=== PATIENT | female | born 1980 | race Caucasian/White ===

== ENCOUNTER 2023-03-13 11:22 | Emergency (ER) | payer OTHER, SELFPAY ==
[2023-03-13] VITALS (51 sets, daily range): BP systolic 60–91; BP diastolic 31–51; PULSE 60–74; RESP 16–26; TEMP 36.5; O2SAT 92–100; BMI 26.3
--- NOTE | 2023-03-13 11:32 | DI.RAD.S_ITS ---
PROCEDURE: XR CHEST 1V INDICATIONS: suspected sepsis TECHNIQUE: One view of the chest was acquired. COMPARISON: None. FINDINGS: Surgical changes and devices: None. Lungs and pleura: Lungs are clear. No pleural effusions or pneumothorax. Mediastinum: Mediastinal contours appear normal. Heart size is normal. Bones and chest wall: No suspicious bony lesions. Overlying soft tissues appear unremarkable. IMPRESSION: No acute cardiopulmonary disease. Dictated by: Sasha Lynne M.D. on 03/13/2023 at 12:29 Approved by: Sasha Lynne M.D. on 03/13/2023 at 12:30
[2023-03-13] MEDS: SODIUM CHLORIDE 0.9% 1,000 ML 1000 ML IV ×2 (11:50→12:20)
[2023-03-13 12:00] LABS: Add Manual Diff / Slide Review NO; Basophils Absolute Auto 0 /uL (0-100); Basophils Percent Auto 0.1 % (0-2); Eosinophils Absolute Auto 100 /uL (0-450); Eosinophils Percent Auto 0.5 % (2-4); Hematocrit 37.7 % (36-46); Hemoglobin 13.1 g/dL (12.0-16.0); Lymphocytes Absolute Auto 1800 /uL (1100-4500); Lymphocytes Percent Auto 11.6 % (25-40); Mean Corpuscular HGB Conc 34.6 % (30-36); Mean Corpuscular Hemoglobin 38.1 PG (26-34); Mean Corpuscular Volume 110.2 fL (80-100); Monocytes Absolute Auto 1000 /uL (0-900); Monocytes Percent Auto 6.5 % (3-14); Neutrophils Absolute Auto 12400 /uL (1500-7000); Neutrophils Percent Auto 81.3 % (50-75); Platelet Count 172 X10^3/uL (150-400); Red Blood Cell Count 3.42 X10^6/uL (4.0-5.2); Red Cell Distribution Width 14.5 % (11.6-14.8); White Blood Cell Count 15.3 X10^3/uL (4.5-11.0)
[2023-03-13 12:07] LABS: INR 1.3 (0.9-1.3)
[2023-03-13 12:09] LABS: Anisocytosis 1+
[2023-03-13 12:10] LABS: PTT Partial Thromboplastin Tim 34 SECONDS (26-36)
[2023-03-13 12:11] LABS: Ammonia (NH3) 21 umol/L (9-30); Lactate (Lactic Acid) 1.5 mmol/L (0.7-2.1)
[2023-03-13 12:13] LABS: Alanine Aminotransferase 62 IU/L (<35); Albumin 3.8 g/dL (3.5-5.0); Albumin Globulin Ratio 0.9 (1.0-2.8); Alkaline Phosphatase 325 U/L (38-126); Aspartate Aminotransferase 109 IU/L (14-36); BUN Creatinine Ratio 6.5 (6-22); Bilirubin Total 6.5 mg/dL (0.2-1.3); Blood Urea Nitrogen 75 mg/dL (7-17); Calcium 8.1 mg/dL (8.4-10.2); Carbon Dioxide 22 mmol/L (22-32); Chloride 84 mmol/L (98-107); Estimated Glomerular Filt Rate 4 mL/min (>60); Globulin 4.2 g/dL (1.7-4.1); Glucose 164 mg/dL (70-100); HEMOLYSIS 20 (0-50); Lipase 658 U/L (23-300); Potassium 2.9 mmol/L (3.4-5.1); Sodium 129 mmol/L (137-145)
--- NOTE | 2023-03-13 12:27 | PC.NURSE ---
Pt alert and oriented x4, pt reports feeling foggy recent falls at home, pt states she did hit her head this morning. Pt presents with distended abomen and yellow sclera. Pt states last drink was 48 hours ago and she had two shots of liquor. Pt is hypotensive SBP 70s, placed in trendelenberg, 2nd L NS running now. Pt is alert and talkative. Family at bedside.
[2023-03-13 12:29] LABS: Procalcitonin 4.09 ng/mL (<0.5)
--- NOTE | 2023-03-13 13:07 | ED_ITS ---
HPI - Weakness General Chief complaint: Dizziness Stated complaint: dizzy/faint/pressure behind eyes/V T-4 Time Seen by Provider: 03/13/23 12:19 Source: patient Mode of arrival: Ambulatory History of Present Illness HPI Narrative: Patient brought here by mother and brother. Patient has been trying to detox at home from alcohol abuse. She states she was given medications to curb the cravings. She is had nonstop nausea and vomiting since last . Now feeling very tired weak dizzy off balance. Patient states can not eat or drink anything. She is had decrease in urination. No prior history of kidney failure. Denies any recent illness fever chills cough or cold or congestion. Regina RN, s/w physician in [place] where patient is from. dr israel's this was with [facility] in [place], [place]. February 03 creatinine 0.43. ALT 38 AST 93 bilirubin 1.4. Patient's blood pressure noted. However she is awake alert oriented x4. Not toxic or dyspneic appearing. Patient is awake alert very vocal with clear speech. Patient states she is been very tired and weak, no energy feeling dizzy off balance. She did fall once in the past week. Blood pressure noted however she took all 3 of her blood pressure medication at 9:00 a.m. this morning. She took amlodipine, lisinopril, metoprolol. Sepsis protocol started with ordering. Related Data Home Medications Medication Instructions Recorded Confirmed amlodipine 5 mg tablet 5 mg PO DAILY 03/13/23 03/13/23 lisinopril 20 1 tab PO BID 03/13/23 03/13/23 mg-hydrochlorothiazide 12.5 mg tablet metoprolol tartrate 25 mg tablet 25 mg PO BID 03/13/23 03/13/23 rosuvastatin 5 mg tablet 5 mg PO DAILY 03/13/23 03/13/23 Allergies Allergy/AdvReac Type Severity Reaction Status Date / Time No Known Drug Allergies Allergy Verified 03/13/23 11:29 Review of Systems Review of Systems Narrative: GENERAL: negative chills, positive fatigue, malaise, negative fever, sweats. HEENT: negative sinus pain, ear pain, sore throat RESPIRATORY: negative dyspnea, cough CARDIOVASCULAR: negative chest pain, palpitations GASTROINTESTINAL: Positive nausea, vomiting, negative diarrhea and abdominal pain : negative dysuria, frequency, hematuria, positive decreased urine output MUSCULOSKELETAL: negative muscle or bony pain SKIN: negative rash, skin lesions NEUROLOGIC: negative weakness, numbness, positive dizziness ROS Unobtainable: All systems reviewed & are unremarkable except as noted in HPI and below Patient History Medical History (Updated 03/13/23 @ 13:38 by Ricci Cage MD) Alcohol abuse Hepatomegaly Hypertension Social History Smoking Status: Current every day smoker Smoking Status: Current every day smoker Substance Use Type: does not use Exam Narrative Exam Narrative: GENERAL: in no distress, not toxic not dyspneic HEAD: Normocephalic. EYES: Pupils equal round, icterus in both eyes ENT: Mucous membranes moist. NECK: Trachea midline. CARDIOVASCULAR: Regular rate and rhythm without murmurs RESPIRATORY: Clear to auscultation. Breath sounds equal bilaterally. No wheezes, rales, or rhonchi. GASTROINTESTINAL: Abdomen soft, non-tender, slightly distended but no peritoneal signs no pain out of proportion to exam. Bowel sounds are present. EXTREMITIES: No gross deformities. BACK: No flank tenderness. NEURO: AOx4. SKIN: Warm and dry PSYCH: Not anxious, is cooperative Initial Vital Signs Initial Vital Signs: Vital Signs Temperature 97.7 F 03/13/23 11:27 Pulse Rate 66 03/13/23 11:27 Respiratory Rate 18 03/13/23 11:27 Blood Pressure 72/49 L 03/13/23 11:27 Pulse Oximetry 99 03/13/23 11:27 Oxygen Delivery Method Room Air 03/13/23 11:27 Course Orders Ordered: Discontinued Medications Sodium Chloride (Normal Saline 0.9%) 1,000 mls @ 1,000 mls/hr IV BOLUS ONE Stop: 03/13/23 12:31 Last Infusion: 03/13/23 12:15 Dose: 0 mls/hr Documented By: Admin: 03/13/23 11:50 Dose: 1,000 mls/hr Documented By: JULIO Sodium Chloride (Normal Saline 0.9%) 1,000 mls @ 1,000 mls/hr IV BOLUS ONE Stop: 03/13/23 13:15 Last Infusion: 03/13/23 13:00 Dose: 0 mls/hr Documented By: Admin: 03/13/23 12:20 Dose: 1,000 mls/hr Documented By: JULIO Ceftriaxone Sodium 2,000 mg/ (Sodium Chloride) 100 mls @ 200 mls/hr IV NOW ONE Stop: 03/13/23 13:21 Last Infusion: 03/13/23 14:25 Dose: 0 mls/hr Documented By: Admin: 03/13/23 13:35 Dose: 200 mls/hr Documented By: JULIO Dopamine HCl/Dextrose (Dopamine 400 Mg-D5w 250 Ml) 400 mg in 250 mls @ 12.247 mls/hr IV TITRATE ESTEPHANIA; Protocol Last Admin: 03/13/23 15:27 Dose: Not Given Documented By: JULIO Lactated Ringer's (Lactated Ringers) 1,000 mls @ 1,000 mls/hr IV BOLUS ONE Stop: 03/13/23 15:22 Last Infusion: 03/13/23 15:20 Dose: 0 mls/hr Documented By: Admin: 03/13/23 14:29 Dose: 1,000 mls/hr Documented By: AMIE Lactated Ringer's (Lactated Ringers) 1,000 mls @ 1,000 mls/hr IV BOLUS ONE Stop: 03/13/23 16:14 Last Infusion: 03/13/23 15:27 Dose: 1,000 mls/hr Documented By: Admin: 03/13/23 15:21 Dose: 1,000 mls/hr Documented By: JULIO Ondansetron HCl (Ondansetron 4 Mg/2 Ml Inj) 4 mg IV NOW PRN PRN Reason: Nausea And Vomiting Ondansetron HCl (Ondansetron 4 Mg Odt) 4 mg SL NOW PRN PRN Reason: Nausea And Vomiting Vital Signs Vital signs: Vital Signs - 8 hr 03/13/23 11:27 03/13/23 11:35 03/13/23 11:40 Temperature 97.7 F Pulse Rate 66 63 65 Respiratory Rate 18 Blood Pressure 72/49 L Pulse Oximetry 99 95 99 Oxygen Delivery Method Room Air 03/13/23 11:45 03/13/23 11:49 03/13/23 11:49 Temperature Pulse Rate 64 61 Respiratory Rate Blood Pressure 60/33 L Pulse Oximetry 98 96 Oxygen Delivery Method 03/13/23 11:50 03/13/23 11:53 03/13/23 11:53 Temperature Pulse Rate 61 61 Respiratory Rate 16 Blood Pressure 64/39 L Pulse Oximetry 97 97 Oxygen Delivery Method 03/13/23 11:55 03/13/23 11:55 03/13/23 12:00 Temperature Pulse Rate 60 61 Respiratory Rate 20 20 Blood Pressure 60/31 L Pulse Oximetry 97 97 Oxygen Delivery Method 03/13/23 12:01 03/13/23 12:01 03/13/23 12:05 Temperature Pulse Rate 65 Respiratory Rate 24 Blood Pressure 69/33 L 71/37 L Pulse Oximetry 97 Oxygen Delivery Method 03/13/23 12:05 03/13/23 12:10 03/13/23 12:10 Temperature Pulse Rate 62 65 Respiratory Rate 18 19 Blood Pressure 74/44 L Pulse Oximetry 98 97 Oxygen Delivery Method 03/13/23 12:15 03/13/23 12:15 03/13/23 12:20 Temperature Pulse Rate 67 Respiratory Rate 23 Blood Pressure 75/46 L 74/45 L Pulse Oximetry 100 Oxygen Delivery Method 03/13/23 12:20 03/13/23 12:25 03/13/23 12:25 Temperature Pulse Rate 67 67 Respiratory Rate 25 H 26 H Blood Pressure 73/43 L Pulse Oximetry 100 98 Oxygen Delivery Method Room Air 03/13/23 12:30 03/13/23 12:30 03/13/23 12:35 Temperature Pulse Rate 68 Respiratory Rate 21 Blood Pressure 75/45 L 75/43 L Pulse Oximetry 98 Oxygen Delivery Method 03/13/23 12:35 03/13/23 12:40 03/13/23 12:40 Temperature Pulse Rate 68 69 Respiratory Rate 20 22 Blood Pressure 74/43 L Pulse Oximetry 98 96 Oxygen Delivery Method 03/13/23 12:45 03/13/23 12:45 03/13/23 12:50 Temperature Pulse Rate 74 Respiratory Rate 23 Blood Pressure 81/49 L 71/38 L Pulse Oximetry 95 Oxygen Delivery Method 03/13/23 12:50 03/13/23 12:55 03/13/23 12:55 Temperature Pulse Rate 71 69 Respiratory Rate 23 20 Blood Pressure 72/42 L Pulse Oximetry 96 92 Oxygen Delivery Method 03/13/23 13:00 03/13/23 13:00 03/13/23 13:05 Temperature Pulse Rate 70 Respiratory Rate 20 Blood Pressure 72/42 L 71/38 L Pulse Oximetry 93 Oxygen Delivery Method 03/13/23 13:05 03/13/23 13:10 03/13/23 13:10 Temperature Pulse Rate 68 67 Respiratory Rate 19 19 Blood Pressure 70/39 L Pulse Oximetry 94 95 Oxygen Delivery Method 03/13/23 13:15 03/13/23 13:15 03/13/23 13:20 Temperature Pulse Rate 68 69 Respiratory Rate 21 19 Blood Pressure 72/40 L Pulse Oximetry 94 95 Oxygen Delivery Method 03/13/23 13:25 03/13/23 13:30 03/13/23 13:35 Temperature Pulse Rate 70 71 69 Respiratory Rate 21 21 18 Blood Pressure Pulse Oximetry 94 95 Oxygen Delivery Method 03/13/23 13:38 03/13/23 13:38 03/13/23 13:40 Temperature Pulse Rate 67 Respiratory Rate 19 Blood Pressure 76/39 L 76/40 L Pulse Oximetry 93 Oxygen Delivery Method 03/13/23 13:40 03/13/23 13:51 03/13/23 13:52 Temperature Pulse Rate 68 67 Respiratory Rate 21 26 H Blood Pressure 79/42 L Pulse Oximetry 93 95 Oxygen Delivery Method 03/13/23 13:52 03/13/23 13:55 03/13/23 13:55 Temperature Pulse Rate 70 69 Respiratory Rate 19 23 Blood Pressure 76/40 L Pulse Oximetry 97 96 Oxygen Delivery Method 03/13/23 14:00 03/13/23 14:00 03/13/23 14:05 Temperature Pulse Rate 68 Respiratory Rate 16 Blood Pressure 74/39 L 75/40 L Pulse Oximetry 98 Oxygen Delivery Method 03/13/23 14:05 03/13/23 14:10 03/13/23 14:10 Temperature Pulse Rate 68 70 Respiratory Rate 17 18 Blood Pressure 80/46 L Pulse Oximetry 97 95 Oxygen Delivery Method 03/13/23 14:15 03/13/23 14:15 03/13/23 14:20 Temperature Pulse Rate 67 Respiratory Rate 20 Blood Pressure 82/51 L 86/49 L Pulse Oximetry 97 Oxygen Delivery Method Room Air 03/13/23 14:20 03/13/23 14:25 03/13/23 14:25 Temperature Pulse Rate 69 69 Respiratory Rate 22 18 Blood Pressure 87/48 L Pulse Oximetry 98 98 Oxygen Delivery Method 03/13/23 14:30 03/13/23 14:30 03/13/23 14:35 Temperature Pulse Rate 65 Respiratory Rate 20 Blood Pressure 83/48 L 88/51 L Pulse Oximetry 98 Oxygen Delivery Method 03/13/23 14:35 03/13/23 14:40 03/13/23 14:40 Temperature Pulse Rate 69 68 Respiratory Rate 21 18 Blood Pressure 89/51 L Pulse Oximetry 98 98 Oxygen Delivery Method 03/13/23 14:45 03/13/23 14:50 03/13/23 14:50 Temperature Pulse Rate 70 69 Respiratory Rate 20 21 Blood Pressure 91/51 L Pulse Oximetry 98 98 Oxygen Delivery Method 03/13/23 14:55 03/13/23 15:00 03/13/23 15:00 Temperature Pulse Rate 71 69 Respiratory Rate 24 20 Blood Pressure 84/48 L Pulse Oximetry 97 97 Oxygen Delivery Method 03/13/23 15:05 03/13/23 15:10 03/13/23 15:10 Temperature Pulse Rate 68 66 Respiratory Rate 21 19 Blood Pressure 83/48 L Pulse Oximetry 97 97 Oxygen Delivery Method 03/13/23 15:15 03/13/23 15:20 03/13/23 15:20 Temperature Pulse Rate 68 68 Respiratory Rate 19 19 Blood Pressure 86/48 L Pulse Oximetry 99 97 Oxygen Delivery Method MDM - Weakness Lab Data 03/13/23 11:50 03/13/23 11:50 Labs: Lab Results 03/13/23 03/13/23 03/13/23 Range/Units 11:50 11:50 11:50 WBC 15.3 H (4.5-11.0) X10^3/uL RBC 3.42 L (4.0-5.2) X10^6/uL Hgb 13.1 (12.0-16.0) g/dL Hct 37.7 (36-46) % MCV 110.2 H (80-100) fL MCH 38.1 H (26-34) PG MCHC 34.6 (30-36) % RDW 14.5 (11.6-14.8) % Plt Count 172 (150-400) X10^3/uL Neut % (Auto) 81.3 H (50-75) % Lymph % (Auto) 11.6 L (25-40) % Villalba % (Auto) 6.5 (3-14) % Eos % (Auto) 0.5 L (2-4) % Baso % (Auto) 0.1 (0-2) % Neut # (Auto) 21776 H (7921-5474) /uL Lymph # (Auto) 1800 (9408-6803) /uL Villalba # (Auto) 1000 H (0-900) /uL Eos # (Auto) 100 (0-450) /uL Baso # (Auto) 0 (0-100) /uL RBC Morphology Not Reportable Anisocytosis 1+ H PT 15.0 H (10.1-12.7) SECONDS INR 1.3 (0.9-1.3) APTT 34 (26-36) SECONDS Sodium 129 L (137-145) mmol/L Potassium 2.9 L (3.4-5.1) mmol/L Chloride 84 L (98-107) mmol/L Carbon Dioxide 22 (22-32) mmol/L BUN 75 H (7-17) mg/dL Creatinine 11.46 H* (0.52-1.04) mg/dL Estimated GFR 4 L (>60) mL/min BUN/Creatinine Ratio 6.5 (6-22) Glucose 164 H (70-100) mg/dL Lactate (0.7-2.1) mmol/L Calcium 8.1 L (8.4-10.2) mg/dL Total Bilirubin 6.5 H (0.2-1.3) mg/dL AST 109 H (14-36) IU/L ALT 62 H (<35) IU/L Alkaline Phosphatase 325 H (38-126) U/L Ammonia (9-30) umol/L Total Protein 8.0 (6.3-8.2) g/dL Albumin 3.8 (3.5-5.0) g/dL Globulin 4.2 H (1.7-4.1) g/dL Albumin/Globulin Ratio 0.9 L (1.0-2.8) Lipase 658 H (23-300) U/L Procalcitonin 4.09 H (<0.5) ng/mL Serum , Qual (Negative) Urine Color Urine Appearance Urine pH (4.5-8.0) Ur Specific [place] (1.000-1.035) Urine Protein (Negative) Urine Glucose (UA) (Negative) g/dL Urine Ketones (NEGATIVE) Urine Occult Blood (Negative) Urine Nitrate (Negative) Urine Bilirubin (NEGATIVE) Ur Bilirubin Confirm (Negative) Urine Urobilinogen (0.2) E.U./dL Ur Leukocyte Esterase (NEGATIVE) Urine RBC (0-5/HPF) Urine WBC (0-5/HPF) Ur Squamous Epith Cells (0-5/HPF) Ur Transition Epith Cell (0-5/HPF) Ur Renal Epithelial Cell (0-1/HPF) Urine Bacteria (None) Hyaline Casts (None) Ur Culture Indicated? SARS-CoV-2 (PCR) (Negative) 03/13/23 03/13/23 03/13/23 Range/Units 11:50 11:50 13:10 WBC (4.5-11.0) X10^3/uL RBC (4.0-5.2) X10^6/uL Hgb (12.0-16.0) g/dL Hct (36-46) % MCV (80-100) fL MCH (26-34) PG MCHC (30-36) % RDW (11.6-14.8) % Plt Count (150-400) X10^3/uL Neut % (Auto) (50-75) % Lymph % (Auto) (25-40) % Villalba % (Auto) (3-14) % Eos % (Auto) (2-4) % Baso % (Auto) (0-2) % Neut # (Auto) (6339-2911) /uL Lymph # (Auto) (9416-7487) /uL Villalba # (Auto) (0-900) /uL Eos # (Auto) (0-450) /uL Baso # (Auto) (0-100) /uL RBC Morphology Anisocytosis PT (10.1-12.7) SECONDS INR (0.9-1.3) APTT (26-36) SECONDS Sodium (137-145) mmol/L Potassium (3.4-5.1) mmol/L Chloride (98-107) mmol/L Carbon Dioxide (22-32) mmol/L BUN (7-17) mg/dL Creatinine (0.52-1.04) mg/dL Estimated GFR (>60) mL/min BUN/Creatinine Ratio (6-22) Glucose (70-100) mg/dL Lactate 1.5 (0.7-2.1) mmol/L Calcium (8.4-10.2) mg/dL Total Bilirubin (0.2-1.3) mg/dL AST (14-36) IU/L ALT (<35) IU/L Alkaline Phosphatase (38-126) U/L Ammonia 21 (9-30) umol/L Total Protein (6.3-8.2) g/dL Albumin (3.5-5.0) g/dL Globulin (1.7-4.1) g/dL Albumin/Globulin Ratio (1.0-2.8) Lipase (23-300) U/L Procalcitonin (<0.5) ng/mL Serum , Qual (Negative) Urine Color Yellow Urine Appearance Clear Urine pH 6.0 (4.5-8.0) Ur Specific [place] 1.020 (1.000-1.035) Urine Protein 2+ H (Negative) Urine Glucose (UA) Negative (Negative) g/dL Urine Ketones Trace H (NEGATIVE) Urine Occult Blood Negative (Negative) Urine Nitrate Negative (Negative) Urine Bilirubin 2+ H (NEGATIVE) Ur Bilirubin Confirm Positive H (Negative) Urine Urobilinogen 1.0 (0.2) E.U./dL Ur Leukocyte Esterase Negative (NEGATIVE) Urine RBC 0-1/hpf (0-5/HPF) Urine WBC 1-5/hpf (0-5/HPF) Ur Squamous Epith Cells 5-10 /hpf H (0-5/HPF) Ur Transition Epith Cell 1-5/hpf (0-5/HPF) Ur Renal Epithelial Cell 0-1/hpf (0-1/HPF) Urine Bacteria Few (2-10) H (None) Hyaline Casts 5-10/lpf (None) Ur Culture Indicated? Cult not indicated SARS-CoV-2 (PCR) (Negative) 03/13/23 03/13/23 Range/Units 13:40 14:24 WBC (4.5-11.0) X10^3/uL RBC (4.0-5.2) X10^6/uL Hgb (12.0-16.0) g/dL Hct (36-46) % MCV (80-100) fL MCH (26-34) PG MCHC (30-36) % RDW (11.6-14.8) % Plt Count (150-400) X10^3/uL Neut % (Auto) (50-75) % Lymph % (Auto) (25-40) % Villalba % (Auto) (3-14) % Eos % (Auto) (2-4) % Baso % (Auto) (0-2) % Neut # (Auto) (2493-8814) /uL Lymph # (Auto) (3779-0287) /uL Vill[place] # (Auto) (0-900) /uL Eos # (Auto) (0-450) /uL Baso # (Auto) (0-100) /uL RBC Morphology Anisocytosis PT (10.1-12.7) SECONDS INR (0.9-1.3) APTT (26-36) SECONDS Sodium (137-145) mmol/L Potassium (3.4-5.1) mmol/L Chloride (98-107) mmol/L Carbon Dioxide (22-32) mmol/L BUN (7-17) mg/dL Creatinine (0.52-1.04) mg/dL Estimated GFR (>60) mL/min BUN/Creatinine Ratio (6-22) Glucose (70-100) mg/dL Lactate (0.7-2.1) mmol/L Calcium (8.4-10.2) mg/dL Total Bilirubin (0.2-1.3) mg/dL AST (14-36) IU/L ALT (<35) IU/L Alkaline Phosphatase (38-126) U/L Ammonia (9-30) umol/L Total Protein (6.3-8.2) g/dL Albumin (3.5-5.0) g/dL Globulin (1.7-4.1) g/dL Albumin/Globulin Ratio (1.0-2.8) Lipase (23-300) U/L Procalcitonin (<0.5) ng/mL Serum , Qual Negative (Negative) Urine Color Urine Appearance Urine pH (4.5-8.0) Ur Specific [place] (1.000-1.035) Urine Protein (Negative) Urine Glucose (UA) (Negative) g/dL Urine Ketones (NEGATIVE) Urine Occult Blood (Negative) Urine Nitrate (Negative) Urine Bilirubin (NEGATIVE) Ur Bilirubin Confirm (Negative) Urine Urobilinogen (0.2) E.U./dL Ur Leukocyte Esterase (NEGATIVE) Urine RBC (0-5/HPF) Urine WBC (0-5/HPF) Ur Squamous Epith Cells (0-5/HPF) Ur Transition Epith Cell (0-5/HPF) Ur Renal Epithelial Cell (0-1/HPF) Urine Bacteria (None) Hyaline Casts (None) Ur Culture Indicated? SARS-CoV-2 (PCR) Negative (Negative) Imaging Data CT scan - head: Radiologist Impression: [address] [address] [address] Scan Report Signed Patient: Yenny Bennett MR#: [id number] : 1980 Acct:[id number] Age/Sex: 42 / F Date of Service: 03/13/23 Loc: ED Accession Number: [id number] ?? Procedure: CT head/brain wo con Ordering Provider: Ricci Cage MD PROCEDURE:? CT HEAD/BRAIN WO CON ? INDICATIONS:? Fall/head pain ? TECHNIQUE:? Noncontrast 4.5 mm thick angled axial sections acquired from the foramen magnum to the vertex, with coronal and sagittal reformats.? For radiation dose reduction, the following was used:? automated exposure control, adjustment of mA and/or kV according to patient size.? ? COMPARISON:? None. ? FINDINGS:? Image quality:? Excellent.? ? CSF spaces:? Basal cisterns are patent.? No extra-axial fluid collections.? Ventricles are normal in size and shape.? ? Brain:? No midline shift.? No intracranial masses or hemorrhage.? Pa-white matter interface is normal.? ? Skull and face:? Calvarium and visualized facial bones are intact, without suspicious lesions.? ? Sinuses:? Visualized sinuses and mastoids are clear.? ? IMPRESSION:? ? 1. No acute intracranial abnormalities. ? ? ? Dictated by: Sasha Lynne M.D. on 03/13/2023 at 14:06 ? ? Approved by: Sasha Lynne M.D. on 03/13/2023 at 14:06 ? CT scan - abdomen/pelvis: Radiologist Impression: [address] [address] [address] Scan Report Signed Patient: Yenny Bennett MR#: [id number] : 1980 Acct:[id number] Age/Sex: 42 / F Date of Service: 03/13/23 Loc: ED Accession Number: [id number] ?? Procedure: CT chest abd pel wo con Ordering Provider: Ricci Cage MD PROCEDURE:? CT CHEST ABD PEL WO CON ? INDICATIONS:? Sepsis ? TECHNIQUE:? After the administration of oral contrast, 5 mm thick sections acquired from the lung apices to the symphysis pubis.? 5 mm thick coronal and sagittal reformats acquired, with additional 7 mm coronal MIP reformats through the lungs.? For radiation dose reduction, the following was used:? automated exposure control, adjustment of mA and/or kV according to patient size.? ? COMPARISON:? [facility], CR, XR CHEST 1V, 03/13/2023, 11:48.? [facility], CT, CT HEAD/BRAIN WO CON, 03/13/2023, 13:49. ? FINDINGS:? Image quality:? Excellent.? ? CHEST:? Lungs and pleura:? No acute pulmonary opacities.? There are multiple small lung nodules.? Reference nodules are listed in the following: ? Nodule 1:? 3 mm; right upper lobe anterior; series 3, image 139. Nodule 2:? 3 mm; right upper lobe lateral; series 3, image 143. Nodule 3:? 4 mm; right upper lobe lateral; series 3, image 159.? Nodule 4:? 3 mm; left upper lobe; series 3, image 183. ? Question mild right lower lobe infiltrate Bibasilar dependent atelectasis.? No pleural effusions or pneumothorax.? Central and peripheral airways are patent are normal in caliber.? ? Mediastinum:? Heart size is normal.? No pericardial effusion.? Mild coronary artery calcification No mediastinal adenopathy by CT size criteria.? Thoracic aorta and central pulmonary arteries are normal in size.? Esophagus is normal in caliber.? Small hiatal hernia.? ? Chest wall:? No axillary or supraclavicular adenopathy by size criteria.? Thyroid gland is unremarkable .? ? ? ABDOMEN:? Solid organs:? Liver is enlarged.? Liver is heterogeneous in attenuation.? Question innumerable small hepatic hypodensities. ? Gallbladder is unremarkable .? Pancreas is normal in contours.? Spleen is normal in size. ?No adrenal nodules.? Both kidneys are normal in size, without hydronephrosis or nephrolithiasis.? ? Peritoneum and bowel:? Small and large bowel loops are normal in caliber.? Colonic wall may be mildly thickened although the appearance could be secondary to inadequate distention.? Normal appendix.? No free fluid or air.? ? Nodes and vessels:? No retroperitoneal or mesenteric adenopathy by size criteria.? Aorta and inferior vena cava are normal in size.? ? Miscellaneous:? No ventral hernias.? ? ? PELVIS:? Genitourinary:? There is a Lam catheter in bladder.? Bladder wall thickness is normal.? No bladder stones ? Miscellaneous:? No inguinal hernias or adenopathy.? ? Bones:? No suspicious bony lesions.? No vertebral body compression fractures.? ? IMPRESSION:? ? 1. Colonic wall may be mildly thickened, suggesting mild colitis.? The appearance, however, could be secondary to inadequate distention.? Recommend clinical correlation. ? 2. Hepatomegaly.? There is innumerable foci of small hypodensities in liver, suggesting an infiltrative process such as Gaucher disease or sarcoidosis.? A differential diagnosis is metastatic disease.? Recommend liver protocol MRI for further evaluation. ? 3. No abnormalities in kidneys on this noncontrast enhanced CT.? No renal stones or hydronephrosis. ? 4. Bibasilar atelectasis.? Question mild right basilar infiltrate. ? 5. Small lung nodules are present bilaterally.? Recommend a short interval follow-up CT in 3 months. ? ? The result was discussed with Dr. Cage. ? Dictated by: Sasha Lynne M.D. on 03/13/2023 at 14:45 ? ? Approved by: Sasha Lynne M.D. on 03/13/2023 at 15:08 ? Chest x-ray: Radiologist Impression: [address] [address] XRay Report Signed Patient: Yenny Bennett MR#: [id number] : 1980 Acct:[id number] Age/Sex: 42 / F Date of Service: 03/13/23 Loc: ED Accession Number: [id number] ?? Procedure: XR chest 1V Ordering Provider: Ricci Cage MD PROCEDURE:? XR CHEST 1V ? INDICATIONS:? suspected sepsis ? TECHNIQUE:? One view of the chest was acquired.? ? COMPARISON:? None. ? FINDINGS:? ? Surgical changes and devices:? None.? ? Lungs and pleura:? Lungs are clear.? No pleural effusions or pneumothorax.? ? Mediastinum:? Mediastinal contours appear normal.? Heart size is normal.? ? Bones and chest wall:? No suspicious bony lesions.? Overlying soft tissues appear unremarkable.? ? IMPRESSION:? No acute cardiopulmonary disease. ? ? Dictated by: Sasha Lynne M.D. on 03/13/2023 at 12:29 ? ? Approved by: Sasha Lynne M.D. on 03/13/2023 at 12:30 ? MDM Narrative Medical decision making narrative: Patient brought here by mother and brother. Patient has been trying to detox at home from alcohol abuse. She states she was given medications to curb the cravings. She is had nonstop nausea and vomiting since last . Now feeling very tired weak dizzy off balance. Patient states can not eat or drink anything. She is had decrease in urination. No prior history of kidney failure. Denies any recent illness fever chills cough or cold or congestion. KIEL Tapia, s/w physician in [place] where patient is from. dr israel's this was with [facility] in [place], [place]. February 03 creatinine 0.43. ALT 38 AST 93 bilirubin 1.4. Patient's blood pressure noted. However she is awake alert oriented x4. Not toxic or dyspneic appearing. Patient is awake alert very vocal with clear speech. Patient states she is been very tired and weak, no energy feeling dizzy off balance. She did fall once in the past week. Blood pressure noted however she took all 3 of her blood pressure medication at 9:00 a.m. this morning. She took amlodipine, lisinopril, metoprolol. Sepsis protocol started with ordering. After history and exam CBC CMP lactic acid procalcitonin blood culture fluid resuscitation sepsis protocol EKG, antibiotics, CT head chest abdomen and pelvis urinalysis [facility] CC: Weakness dizziness nausea and vomiting Complicating co-morbidities: History of alcohol abuse Data collected from: Patient and family Medical records reviewed: Faxed records from clinic in [place] visit date January 18, 2023 at 2:00 p.m. Differential considered: Includes but not limited to sepsis, dehydration, renal failure, alcohol withdrawal Exam documented above, pertinent findings include: Nontender abdomen, icterus Lab Test results independently reviewed as above. Pertinent findings: WBC 15.3 hemoglobin 13.1 INR 1.3 sodium 129 potassium 2.9 bicarb 22 BUN 75 creatinine 11.46 GFR 4 glucose 164 AST 109 ALT 62 ammonia 21 lipase 658 procalcitonin 4.09 lactic acid 1.5 Independently reviewed EKG sinus rhythm rate [address] elevation or depression. QT prolongation 528 Imaging studies independently reviewed: CT head no acute process chest x-ray no acute process, CT abdomen and pelvis no acute process, chest x-ray no acute process Consultations: 1:[address] Schneider, nephrology with [facility] [facility] [place], at this time do not give vasopressors, he would like to give patient 2 L of lactated Ringer's and after that, 125 mL an hour until tomorrow morning. At that time they will reassess whether patient needs dialysis. 1:45 p.m.. Spoke with [facility] hospitalist, Dr. Rolon, he will accept patient Treatments: Dopamine normal saline Rocephin Re-evaluations: 2:00 p.m.. Updated patient and family. They do understand agree for transfer to [facility] in [place]. Patient remains awake alert oriented x4. No withdrawal symptoms since no seizures. No altered mental status. Blood pressure systolic in the 70s. However patient is not toxi c. Discussion: Appropriate for transfer. Patient will need Nephrology/ICU, blood pressure likely also relates to taking 3 blood pressure medications this morning. This will likely improve once half-life improves. Patient will need close monitoring with Nephrology. I did find [facility] able to accommodate for this. Patient is not in withdrawals. No CIWA protocol indicated at this time. Last alcohol drink was 2 or 3 days ago. Diagnosis: Acute renal failure Critical Care Time Critical Care Time Attestation: Critical Care Time 35 minutes: Critical care time is separate from other billable procedures. This critical care time includes consultation with family and other consulting doctors, review of records, and interpretation of data from labs, EKGs, imaging, etc. Discharge Plan Departure Patient Disposition: [facility] Clinical Impression: Acute renal failure, Acute hypotension Prescriptions: No Action lisinopril-hydrochlorothiazide 20-12.5 mg tablet 1 tab PO BID Patient Comments: TAKE 1 TABLET BY MOUTH TWICE DAILY FOR HIGH BLOOD PRESSURE amlodipine 5 mg tablet 5 mg PO DAILY Patient Comments: TAKE 1 TABLET BY MOUTH EVERY DAY FOR HIGH BLOOD PRESSURE rosuvastatin 5 mg tablet 5 mg PO DAILY Patient Comments: TAKE 1 TABLET BY MOUTH EVERY DAY FOR HIGH CHOLESTEROL metoprolol tartrate 25 mg tablet 25 mg PO BID Patient Comments: TAKE 1 TABLET BY MOUTH TWICE DAILY FOR HIGH BLOOD PRESSURE Referrals: Miscellaneous,Doctor, [Primary Care Provider] -
--- NOTE | 2023-03-13 13:13 | DI.CT.S_ITS ---
PROCEDURE: CT HEAD/BRAIN WO CON INDICATIONS: Fall/head pain TECHNIQUE: Noncontrast 4.5 mm thick angled axial sections acquired from the foramen magnum to the vertex, with coronal and sagittal reformats. For radiation dose reduction, the following was used: automated exposure control, adjustment of mA and/or kV according to patient size. COMPARISON: None. FINDINGS: Image quality: Excellent. CSF spaces: Basal cisterns are patent. No extra-axial fluid collections. Ventricles are normal in size and shape. Brain: No midline shift. No intracranial masses or hemorrhage. Pa-white matter interface is normal. Skull and face: Calvarium and visualized facial bones are intact, without suspicious lesions. Sinuses: Visualized sinuses and mastoids are clear. IMPRESSION: 1. No acute intracranial abnormalities. Dictated by: Sasha Lynne M.D. on 03/13/2023 at 14:06 Approved by: Sasha Lynne M.D. on 03/13/2023 at 14:06
--- NOTE | 2023-03-13 13:18 | DI.CT.S_ITS ---
PROCEDURE: CT CHEST ABD PEL WO CON INDICATIONS: Sepsis TECHNIQUE: After the administration of oral contrast, 5 mm thick sections acquired from the lung apices to the symphysis pubis. 5 mm thick coronal and sagittal reformats acquired, with additional 7 mm coronal MIP reformats through the lungs. For radiation dose reduction, the following was used: automated exposure control, adjustment of mA and/or kV according to patient size. COMPARISON: [facility], CR, XR CHEST 1V, 03/13/2023, 11:48. [facility], CT, CT HEAD/BRAIN WO CON, 03/13/2023, 13:49. FINDINGS: Image quality: Excellent. CHEST: Lungs and pleura: No acute pulmonary opacities. There are multiple small lung nodules. Reference nodules are listed in the following: Nodule 1: 3 mm; right upper lobe anterior; series 3, image 139. Nodule 2: 3 mm; right upper lobe lateral; series 3, image 143. Nodule 3: 4 mm; right upper lobe lateral; series 3, image 159. Nodule 4: 3 mm; left upper lobe; series 3, image 183. Question mild right lower lobe infiltrate Bibasilar dependent atelectasis. No pleural effusions or pneumothorax. Central and peripheral airways are patent are normal in caliber. Mediastinum: Heart size is normal. No pericardial effusion. Mild coronary artery calcification No mediastinal adenopathy by CT size criteria. Thoracic aorta and central pulmonary arteries are normal in size. Esophagus is normal in caliber. Small hiatal hernia. Chest wall: No axillary or supraclavicular adenopathy by size criteria. Thyroid gland is unremarkable . ABDOMEN: Solid organs: Liver is enlarged. Liver is heterogeneous in attenuation. Question innumerable small hepatic hypodensities. Gallbladder is unremarkable . Pancreas is normal in contours. Spleen is normal in size. No adrenal nodules. Both kidneys are normal in size, without hydronephrosis or nephrolithiasis. Peritoneum and bowel: Small and large bowel loops are normal in caliber. Colonic wall may be mildly thickened although the appearance could be secondary to inadequate distention. Normal appendix. No free fluid or air. Nodes and vessels: No retroperitoneal or mesenteric adenopathy by size criteria. Aorta and inferior vena cava are normal in size. Miscellaneous: No ventral hernias. PELVIS: Genitourinary: There is a Lam catheter in bladder. Bladder wall thickness is normal. No bladder stones Miscellaneous: No inguinal hernias or adenopathy. Bones: No suspicious bony lesions. No vertebral body compression fractures. IMPRESSION: 1. Colonic wall may be mildly thickened, suggesting mild colitis. The appearance, however, could be secondary to inadequate distention. Recommend clinical correlation. 2. Hepatomegaly. There is innumerable foci of small hypodensities in liver, suggesting an infiltrative process such as Gaucher disease or sarcoidosis. A differential diagnosis is metastatic disease. Recommend liver protocol MRI for further evaluation. 3. No abnormalities in kidneys on this noncontrast enhanced CT. No renal stones or hydronephrosis. 4. Bibasilar atelectasis. Question mild right basilar infiltrate. 5. Small lung nodules are present bilaterally. Recommend a short interval follow-up CT in 3 months. The result was discussed with Dr. Cage. Dictated by: Sasha Lynne M.D. on 03/13/2023 at 14:45 Approved by: Sasha Lynne M.D. on 03/13/2023 at 15:08
[2023-03-13 13:34] LABS: Appearance Urine UA CLEAR; Bilirubin Urine UA 2+ (NEGATIVE); Color Urine UA YELLOW; Glucose Urine UA NEGATIVE (Negative); Ketones Urine UA TRACE (NEGATIVE); Leukocyte Esterase Urine UA NEGATIVE (NEGATIVE); Nitrite Urine UA NEGATIVE (Negative); Occult Blood Urine UA NEGATIVE (Negative); Protein Urine UA 2+ (Negative)
[2023-03-13] MEDS: cefTRIAXone 2,000 MG in SODIUM CHLORIDE 0.9% 100 ML 200 MG IV (13:35)
[2023-03-13 14:00] LABS: RBC Urine 0-1/HPF (0-5/HPF); Renal Epithelial Cells Urine 0-1/HPF (0-1/HPF); Squamous Epithelial Cell Urine 5-10 /HPF (0-5/HPF); Transitional Epi Cells Urine 1-5/HPF (0-5/HPF); WBC Urine 1-5/HPF (0-5/HPF)
[2023-03-13 14:01] LABS: Bacteria Urine Few (2-10); Hyaline Casts Urine 5-10/LPF
[2023-03-13 14:04] LABS: Culture Indicated Urine Cult Not Indicated; Ictotest Urine Positive (Negative)
[2023-03-13] MEDS: LACTATED RINGERS 1,000 ML 1000 ML IV ×2 (14:29→15:21)
[2023-03-13 14:37] LABS: COVID19 -Nasal RAPID Negative (Negative)
[2023-03-13 14:46] LABS: Pregnancy Test Serum,Qual Negative (Negative)
== END 2023-03-13 15:35 | disposition short-term general hospital (02) ==
PROVIDERS: Emergency Provider Emergency Medicine
DX: N17.9 Acute kidney failure, unspecified (principal); I95.9 Hypotension, unspecified; R11.2 Nausea with vomiting, unspecified; Z20.822 Contact with and (suspected) exposure to COVID-19
CPT/HCPCS: 36415; 36569; 70450; 71045; 71250; 74176; 80053; 81001; 82140; 83605; 83690; 84145; 84703; 85025; 85610; 85730; 87040; 87635; 93005; 93010; 96361; 96365; 99285; 99291; C9803; J0696